=== PATIENT | female | born 1980 | race Caucasian/White ===

== ENCOUNTER 2025-05-30 20:36 | Emergency (ER) | payer SELFPAY ==
[~2025-05-30] VITALS: Ht 152.4 cm; Wt 63.5 kg
[2025-05-30] MEDS ORDERED: LIPITOR80 MG PO (21:27)
[2025-05-30] MEDS ORDERED: LISINOPRIL5 MG PO (21:27)
[2025-05-30] MEDS ORDERED: TOPAMAX100 M1 PO (21:28)
[2025-05-30] MEDS ORDERED: CEPHALEXIN500 M1 PO (22:37)
== END 2025-05-30 22:59 | disposition home or self-care (01) ==
LOC: ED 20:36
DX: S61.411A Laceration without foreign body of right hand, initial encounter (principal); Z79.899 Other long term (current) drug therapy; W01.118A Fall on same level from slipping, tripping and stumbling with subsequent striking against other sharp object, initial encounter; Y93.89 Activity, other specified; Y92.89 Other specified places as the place of occurrence of the external cause; Y99.8 Other external cause status

== ENCOUNTER 2025-06-04 13:44 | Emergency (ER) | payer BC ==
[~2025-06-04 13:44] MED LIST: CEPHALEXIN500 M1 PO; LIPITOR80 MG PO; LISINOPRIL5 MG PO; TOPAMAX100 M1 PO
[2025-06-04 14:54] LABS: BASO # 0.1 10*3/uL (0.0-0.1); BASO % 0.4 % (0.0-1.0); EOS # 0.2 10*3/uL (0.0-0.4); EOS % 1.8 % (1.0-4.0); MEAN CELL VOLUME 90.0 fl (81.0-99.0); MEAN CORPUSCULAR HGB 29.8 pg (27.0-31.0); MEAN PLATELET VOLUME 10.2 fl (9.6-12.3); MONO # 0.5 10*3/uL (0.1-1.0); MONO % 4.1 % (3.0-9.0); NEUT # 9.0 10*3/uL (2.3-7.9); NEUT % 69.7 % (47.0-73.0); NUCLEATED RED BLOOD CELL 0.0 % (0.0-0.0); NUCLEATED RED BLOOD CELL 0.0 10*3/uL (0.0-0.0); PLATELET COUNT AUTOMATED 290 10*3/uL (130-400); RED CELL DISTRI WIDTH 13.2 % (0-14.5)
[2025-06-04 15:22] LABS: BUN 7 mg/dl (9-23)
[2025-06-04] MEDS ORDERED: AMOX-CLAV 875-1 EACH PO (16:04)
[2025-06-04] MEDS ORDERED: TRAMADOL HCL50 MG PO (16:06)
== END 2025-06-04 16:10 | disposition home or self-care (01) ==
LOC: ED 13:44
PROVIDERS: Nurse Practitioner Family
DX: M79.89 Other specified soft tissue disorders (principal); E78.00 Pure hypercholesterolemia, unspecified; G43.909 Migraine, unspecified, not intractable, without status migrainosus